=== PATIENT | female | born 1965 | race Hispanic/Latino ===

== ENCOUNTER 2018-09-28 19:00 | Emergency (ER) | payer OTHER, SELFPAY ==
--- NOTE | 2018-09-28 19:22 | ED.TRAUMA ---
HPI - Trauma General Chief Complaint: Extremity Injury, Upper Stated Complaint: Right neck collar bone pain Time Seen by Provider: 09/28/18 19:22 Source: patient and family Mode of arrival: ambulatory Limitations: language barrier History of Present Illness HPI narrative: 53-year-old [place]ic-speaking only female here with family members who provided translation. 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 She was pulling weeds and remembers pulling when specifically large bleed in afterwards having pain in the back of her left shoulder. Woke up this morning with worsening pain that is just progressed throughout the day. Has not tried anything for symptoms prior to arrival. States it is now radiating over the top of her left shoulder down the top of her left side of the chest. Related Data Previous Rx's Medication Instructions Recorded cyclobenzaprine 10 mg PO TID PRN #12 tab 09/28/18 Review of Systems Constitutional Denies fever(s) and Denies headache(s) ENT Ears, Nose, Mouth, and Throat: Denies vertigo, Denies dizziness, Denies headache(s) and Denies disequilibrium Cardiovascular Denies chest pain and Denies dyspnea Respiratory Denies dyspnea Gastrointestinal Gastrointestinal: Denies abdominal pain Musculoskeletal Denies numbness and Denies tingling Comments: Left upper back left shoulder pain Integumentary/Breasts Denies rash Neurologic Denies vertigo, Denies dizziness, Denies headache(s), Denies numbness, Denies tingling, Denies paresthesias and Denies disequilibrium [facility] Medical History Patient denies medical problems (Acute) Social History lives independently: Yes Social History lives independently: Yes Exam Initial Vital Signs Initial Vital Signs: Vital Signs Pulse Rate 63 09/28/18 20:20 Blood Pressure 116/76 09/28/18 20:20 Pulse Oximetry 99 09/28/18 20:20 Const General: cooperative, well developed, well groomed and No acute distress Orientation: alert and awake HENMT Head: normal to inspection and normocephalic Resp Effort & Inspection: normal respiratory effort Auscultation: clear to auscultation bilaterally Cardio Rate: regular rate Rhythm: regular rhythm Back/Spine/Pelvis Thoracic/Lumbar Spine: No thoraco-lumbar spasm, No thoracic spinal tenderness and No lumbar spinal tenderness Other: Tenderness over the left cervical paraspinal area and the upper scapula. Fullness of the muscle over this area. Skin Lesions: no lesions Rashes: no rashes Neuro General: alert and awake Cognition: normal cognition Extrem General: normal to inspection and capillary refill normal Other: Left shoulder range of motion somewhat limited by pain to the upper left back. No tenderness to palpation over the shoulder or distal to the left shoulder. Course Orders Ordered: Discontinued Medications Hydromorphone HCl (Dilaudid) 0.5 mg IM NOW ONE Stop: 09/28/18 19:35 Last Admin: 09/28/18 19:40 Dose: 0.5 mg Ketorolac Tromethamine (Toradol) 30 mg IM NOW ONE Stop: 09/28/18 19:35 Last Admin: 09/28/18 19:40 Dose: 30 mg Vital Signs - 8 hr 09/28/18 20:20 Pulse Rate 63 Blood Pressure 116/76 Pulse Oximetry 99 MDM - Trauma MDM Narrative Medical decision making narrative: History and physical exam is consistent with a muscle spasm of the left upper back most likely either the levator scapulae or rhomboid or trapezius. Potentially a combination of any these muscles well. She was given Toradol and pain medicine here in the ER. Will send home with Flexeril. Will hold on any radiologic studies. Low suspicion for fracture. No radicular symptoms down the left arm. They were given return precautions and follow-up instructions. The patient expressed understanding and agreement with plan. Discharge Plan Departure Patient Disposition: Home Clinical Impression: Muscle spasm Discharge Date/Time: 09/28/18 20:21 Interventions: ED Discharge Assessment Last Done: 09/28/18 20:20 Instructions: DI for Muscle Spasm Activity Restrictions/Additional Instructions: I would recommend starting on a anti-inflammatories such as Motrin/ibuprofen. You can take 600 mg 3 times a day. Take this with food. You can also try heat and/or ice and also massage. You are only limited in your activity with the discomfort you are having. Contact your primary care provider for follow-up. If you do not have a primary provider you can contact 360 help you establish a primary provider here in the area. You can also follow up in the walk-in clinic. Return to the emergency department for any new or worsening symptoms Prescriptions: New cyclobenzaprine 10 mg tablet 10 mg PO TID PRN (Reason: muscle spasm) Qty: 12 RF: 0
--- NOTE | 2018-09-28 19:26 | PC.NURSE ---
pt has noticeable swelling bilteral neck. Pt c/o worsening pain on left side,difficulty to turn head
[2018-09-28] MEDS: HYDROMORPHONE 1 MG INJ 0.5 MG IM (19:40)
[2018-09-28] MEDS: KETOROLAC 60 MG/2 ML VIAL 30 MG IM (19:40)
[2018-09-28 20:20] VITALS: BP 116/76; PULSE 63; O2SAT 99
== END 2018-09-28 20:21 | disposition home or self-care (01) ==
PROVIDERS: Emergency Provider Emergency Medicine
DX: M62.838 Other muscle spasm (principal); X50.0XXA Overexertion from strenuous movement or load, initial encounter; Y99.0 Civilian activity done for income or pay
CPT/HCPCS: 96372; 99281; 99283; J1170; J1885